=== PATIENT | male | born 1965 | race Caucasian/White ===

== ENCOUNTER 2021-11-23 16:05 | Emergency (ER) | payer SELFPAY ==
[~2021-11-23] VITALS: Ht 170.2 cm; Wt 98.0 kg
[2021-11-23 16:30] VITALS: BP 153/113
[2021-11-23] MEDS ORDERED: LIDOCAINE 1%/EPI 1:100,000 20 ML VIAL. INJ ONE (17:00)
--- NOTE | 2021-11-23 17:13 | PHYS DOC ---
Past Medical History Past Medical History: No Pertinent History Past Surgical History: Other Additional Past Surgical Histo: HERNIA REPAIR Smoking Status: Current Every Day Smoker Alcohol Use: None Drug Use: None General Adult EDM: Chief Complaint: LACERATION/AVULSION HPI: HPI: Is a 56-year-old male who presents today with a left forearm laceration. Patient states that he was working to clean something out and grabbed a hose and was using a pocket knife to cut the hose and the knife slipped and cut his forearm area. Patient states that he did not clean out the wound after it happened he wrapped a pair of old pants over it and use some duct tape to secure the pants to his arm and came to the emergency department. Patient states his last tetanus shot was greater than 5 years. Patient is right-hand dominant Review of Systems: Review of Systems: Constitutional: Denies fever or chills. [] Eyes: Denies change in visual acuity. [] HENT: Denies nasal congestion or sore throat. [] Respiratory: Denies cough or shortness of breath. [] Cardiovascular: Denies chest pain or edema. [] GI: Denies abdominal pain, nausea, vomiting, bloody stools or diarrhea. [] : Denies dysuria. [] Musculoskeletal: Denies back pain or joint pain. [] Integument: Laceration to left forearm Neurologic: Denies headache, focal weakness or sensory changes. [] Endocrine: Denies polyuria or polydipsia. [] Lymphatic: Denies swollen glands. [] Psychiatric: Denies depression or anxiety. [] Heart Score: C/O Chest Pain: No Risk Factors: Risk Factors: DM, Current or recent (<one month) smoker, HTN, HLP, family history of CAD, obesity. Risk Scores: Score 0 - 3: 2.5% MACE over next 6 weeks - Discharge Home Score 4 - 6: 20.3% MACE over next 6 weeks - Admit for Clinical Observation Score 7 - 10: 72.7% MACE over next 6 weeks - Early Invasive Strategies Current Medications: Current Medications Medications (Trade) Dose Ordered Sig/Kaveh Start Time Stop Time Status Last Admin Dose Admin Lidocaine/ Epinephrine (LIDOCAINE 1%-EPI 1:100,000 Multi-Dose) 20 ml 1X ONCE 11/23/21 17:00 11/23/21 17:01 DC Allergies: Allergies: Allergies Coded Allergies Type Severity Reaction Last Updated Verified No Known Drug Allergies 11/23/21 No Physical Exam: PE: Constitutional: Well developed, well nourished, no acute distress, non-toxic appearance. [] HENT: Normocephalic, atraumatic, bilateral external ears normal, oropharynx moist, no oral exudates, nose normal. [] Eyes: PERRLA, EOMI, conjunctiva normal, no discharge. [] Neck: Normal range of motion, no tenderness, supple, no stridor. [] Cardiovascular:Heart rate regular rhythm, no murmur [] Lungs & Thorax: Bilateral breath sounds clear to auscultation [] Abdomen: Bowel sounds normal, soft, no tenderness, no masses, no pulsatile masses. [] Skin: 4 cm laceration noted on the medial aspect of the forearm, no active bleeding noted Back: No tenderness, no CVA tenderness. [] Extremities: Left hand neurovascular is intact patient is able to flex and extend hand with no sensory deficit noted, cap refill is less than 2 seconds.radial pulse in the left arm is 2+ Neurologic: Alert and oriented X 3, normal motor function, normal sensory function, no focal deficits noted. [] Psychologic: Affect normal, judgement normal, mood normal. [] Current Patient Data: Vital Signs: Vital Signs Date Time Temp Pulse Resp B/P (MAP) Pulse Ox O2 Delivery O2 Flow Rate FiO2 11/23/21 16:30 98.0 99 20 153/113 (126) 95 Room Air 98.0 EKG: EKG: [] Radiology/Procedures: Radiology/Procedures: Indication: left forearm laceration Procedure: Patient was placed in a sitting position, lidocaine 1% with epinephrine 5 mL was injected into the wound, when wound was properly anesthetized wound was cleaned with Betadine solution approximately 120 mL of normal saline was used to irrigate the wound, 6 interrupted 3-0 Ethilon was used to close the wound. Dressing was applied by nursing staff. Total repaired wound length: 4cm The patient tolerated the procedure well Complications: none Course & Med Decision Making: Course & Med Decision Making Pertinent Labs and Imaging studies reviewed. (See chart for details) Sutures were placed patient tolerated well, dressing applied by nursing staff. Sutures will need to be removed in 7 to 10 days, patient will be instructed to clean the wounds twice daily with mild soap and water watch for any signs and sy mptoms of infection. Due to the dirty conditions that the laceration occurred I will give the patient 7 days worth of cephalexin to take. Patient is encouraged take Tylenol and/or ibuprofen as needed for pain keep the wound covered if in an unclean environment. Dragon Disclaimer: Dragon Disclaimer: This electronic medical record was generated, in whole or in part, using a voice recognition dictation system. Departure Departure Impression: Primary Impression: Forearm laceration Qualified Codes: S51.812A - Laceration without foreign body of left forearm, initial encounter Disposition: HOME / SELF CARE / HOMELESS Condition: STABLE Referrals: NO PCP (PCP) Patient Instructions: Laceration Care, Adult Additional Instructions: Sutures removed in the next 7 to 10 days, he may return here to the emergency department or follow-up with your primary care physician to have those removed Tylenol and/or ibuprofen as needed for pain Cleanse wound twice daily with mild soap and water watching for any signs and symptoms of infection which may include redness, warmth, drainage, or development of a fever Keep the wound covered if you are in dirty conditions or working Return to the emergency department for any signs and symptoms of infection Keflex take 1 tablet twice daily for 7 full days Scripts Cephalexin (CEPHALEXIN) 500 Mg Tablet 1 CAP PO BID, #[id number] CAP Prov: LIAM JAMES APRN 11/23/21 LIAM JAMES [employer] Nov 23, 2021 17:13
[2021-11-23] MEDS ORDERED: DIPHTH,PERTUSS(ACELL),TET TOX 0.5 ML DISP.SYRIN. VAX IM ONE (17:30)
[2021-11-23] MEDS ORDERED: CEPH500T PO (17:59)
== END 2021-11-23 18:10 | disposition home or self-care (01) ==
LOC: ER 16:05
DX: S51.812A Laceration without foreign body of left forearm, initial encounter (principal); F17.200 Nicotine dependence, unspecified, uncomplicated; W26.0XXA Contact with knife, initial encounter; Y93.89 Activity, other specified; Y92.89 Other specified places as the place of occurrence of the external cause; Y99.8 Other external cause status
CPT/HCPCS: 12002; 90471; 90715; 99283; J3490